=== PATIENT | male | born 1955 | race Caucasian/White ===

== ENCOUNTER 2025-03-16 09:23 | Day surgery (SDC) | payer OTHER ==
[2025-03-15 08:41] VITALS: BMI 27.1
[2025-03-16] MEDS: IV FLUID CONTINUATION 1,000 ML IV ONE (09:29)
[2025-03-16 09:59] LABS: Glucose,Whole Blood 180 mg/dL (70-110)
[2025-03-16] MEDS: SODIUM CHLORIDE 0.9% 1,000 ML IV SCH (10:09)
[2025-03-16] MEDS ORDERED: PHENYLEPHRINE 10 MG/ML VIAL ONE (11:20)
[2025-03-16] MEDS ORDERED: METOPROLOL TARTRATE 5 MG/5 ML VIAL IVP ONE (11:20)
[2025-03-16] MEDS ORDERED: PROPOFOL 10 MG/ML 20 ML VIAL IV ONE (11:20)
[2025-03-16] MEDS ORDERED: NEOSTIGMINE 1 MG/ML 10 ML VIAL ONE (11:20)
[2025-03-16] MEDS ORDERED: ONDANSETRON 4 MG/2 ML VIAL ONE (11:20)
[2025-03-16] MEDS ORDERED: fentaNYL (PF) 50 MCG/ML 2 ML AMP ONE (11:20)
[2025-03-16] MEDS ORDERED: ISOPROTERENOL 250 MCG/1.25 ML SYR IV ONE (11:20)
[2025-03-16] MEDS ORDERED: ePHEDrine 50 MG/ML 1 ML VIAL ONE (11:20)
[2025-03-16] MEDS ORDERED: ROCURONIUM 10 MG/ML (5 ML VIAL) IV ONE (11:20)
[2025-03-16] MEDS ORDERED: LIDOCAINE 1% INJ 10MG/ML (20 ML MDV) ONE (11:20)
[2025-03-16] MEDS ORDERED: WATER FOR INJECTION, STERILE 10 ML VIAL IV ONE (11:20)
[2025-03-16] MEDS ORDERED: GLYCOPYRROLATE 0.2 MG/ML 2 ML VIAL ONE (11:20)
[2025-03-16] MEDS ORDERED: SUCCINYLCHOLINE CHLORIDE 200 MG/10 ML VIAL IV ONE (11:20)
[2025-03-16] MEDS: HEPARIN SODIUM (1,000 UNIT/ML) 1,000 UNIT in SODIUM CHLORIDE 0.9% 1,000 ML IRRIGATION ONE (11:35)
[2025-03-16] MEDS: LIDOCAINE 1% INJ 10MG/ML (20 ML MDV) SQ ONE (12:01)
[2025-03-16] MEDS ORDERED: ACETAMINOPHEN TAB 325 MG TAB PO PRN (14:26)
[2025-03-16] MEDS: ACETAMINOPHEN IV (For NPO) 1,000 MG in EMPTY BAG 1 BAG IVPB ONE (15:44)
[2025-03-16 17:13] LABS: Glucose,Whole Blood 145 mg/dL (70-110)
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
--- NOTE | 2025-03-16 17:26 | P.EPPROC ---
- EP Procedure Note Electrophysiology Procedure Note: Diagnosis: Symptomatic atrial flutter with RVR Final diagnosis: Atrial flutter with RVR status post atrial flutter ablation, successful with confirmed bidirectional block as well as noncapture along the RF line Details Patient was brought to the EP lab in the fasting state. Written informed consent was obtained prior to the procedure. Right and left groins were prepped and draped as a protocol. Venous sheaths were placed in the right left femoral veins. Intracardiac echo catheter was placed and 3D mapping of the cavotricuspid isthmus was performed. 2 pouches were noted in the isthmus normal LV function, no pericardial effusion noted no left atrial appendage thrombus noted Coronary sinus catheter placed later catheters placed in the high right atrium His bundle area for EP study Sinus cycle length 815 ms, QRS 140 ms, QT 427 ms AH 103 and HV interval 35 ms Recovery times were 1027, 894 and 1111 ms AV node Wenckebach block 330 ms No evidence for slow pathway conduction No evidence for antegrade accessory pathway conduction Mapping of the cavotricuspid isthmus was performed. A complete line of block was made using RF energy, from the cavotricuspid isthmus to the eustachian ridge/IVC The area of the pouch was ablated carefully. An additional short RF line was made along this region Complete bidirectional block was proven at the end of the procedure. Isthmus conduction time 161 ms in both directions Noncapture with high output pacing noted along the line Activation mapping performed with pacing from the coronary sinus to confirm late activation across the line High-dose Isopril infused Diagnose EP study performed AV node Wenckebach block 230 ms on Isopril No other arrhythmias induced No atrial fibrillation induced All catheters removed, sheath removed vascular access sites were closed with closure devices successfully Patient tolerated the procedure well without any acute complications No evidence for pericardial effusion on intracardiac echo postprocedure
--- NOTE | 2025-03-16 17:28 | P.PRLE ---
RE: Lex Puente Dear Dr. Mariza Puente underwent diagnostic EP study and successful ablation for typical atrial flutter with confirmed bidirectional block across the RF line. Following that an EP study was performed on and off Isopril and no arrhythmias could be induced, including atrial fibrillation At this time I would recommend continuing current medications and continuation of Eliquis Thank you for entrusting me with the care of the patient Warm regards Sincerely Elan Bennett
[2025-03-16] MEDS: metFORMIN 850 MG TAB PO SCH (18:02)
[2025-03-16] MEDS: glipiZIDE 5 MG TAB PO SCH (18:02)
[2025-03-16] MEDS: APIXABAN 5 MG TAB PO SCH (18:07)
[2025-03-16] MEDS: METOPROLOL TARTRATE 25 MG TAB PO SCH (18:07)
[2025-03-16 20:57] LABS: Glucose,Whole Blood 232 mg/dL (70-110)
[2025-03-17 01:26] VITALS: RESP 16; TEMP 98.2
[2025-03-17 06:15] LABS: Glucose,Whole Blood 161 mg/dL (70-110)
[2025-03-17] MEDS: LEVOTHYROXINE 25 MCG TAB PO SCH (06:15)
[2025-03-17] MEDS: PANTOPRAZOLE 40 MG TABLET PO SCH (08:05)
[2025-03-17] MEDS: lisinopriL 5 MG TAB PO SCH (08:05)
[2025-03-17] MEDS: ATORVASTATIN 40 MG TAB PO SCH (08:06)
[2025-03-17] MEDS: allopurinoL 100 MG TAB PO SCH (08:06)
[2025-03-17] MEDS: DAPAGLIFLOZIN PROPANEDIOL 10 MG TABLET PO SCH (08:06)
[2025-03-17 08:31] VITALS: BP 144/55; PULSE 69
== END 2025-03-17 10:15 | disposition home or self-care (01) ==
LOC: CATHEP 09:23 → 6NMEDSUR 13:23 → CATHEP 03-17 10:15
PROVIDERS: ATTEND Internal Medicine Clinical Cardiac Electrophysiology
DX: I48.3 Typical atrial flutter (principal); I44.1 Atrioventricular block, second degree; I10 Essential (primary) hypertension; E11.9 Type 2 diabetes mellitus without complications; E78.1 Pure hyperglyceridemia; E89.0 Postprocedural hypothyroidism; I08.1 Rheumatic disorders of both mitral and tricuspid valves; I25.3 Aneurysm of heart; K21.9 Gastro-esophageal reflux disease without esophagitis; Z79.01 Long term (current) use of anticoagulants; Z79.84 Long term (current) use of oral hypoglycemic drugs; Z79.890 Hormone replacement therapy; Z79.899 Other long term (current) drug therapy; Z87.891 Personal history of nicotine dependence; Z85.46 Personal history of malignant neoplasm of prostate; Z82.49 Family history of ischemic heart disease and other diseases of the circulatory system
CPT/HCPCS: 93623; 93662; 93653; 86900; 86901; 86850; C1759; C1894; C1769; C1766; C1760 ×2; C1730; C1732; J0330; J2710; J2405; J2003; J3010; J1644; J2704; J2371; J1596